=== PATIENT | male | born 1955 | race Caucasian/White ===

== ENCOUNTER 2021-01-30 18:58 | Inpatient (IN) ==
[2021-01-31] MEDS ORDERED: *HR* OxyCODONE Immed Rel 5 MG TABLET PO PRN ×2 (18:38→19:04)
[2021-01-31] MEDS ORDERED: NON-FORMULARY MEDICATION 1 EACH EACH (Potassium Chloride [Klor-Con 10] 10 MEQ Tablet.Er) PO PRN (18:38)
[2021-01-31] MEDS ORDERED: Fluticasone Propionate Nasal 50 MCG/SPRAY BOTTLE NS PRN (18:38)
[2021-01-31] MEDS: *HR* OxyCODONE Immed Rel 5 MG TABLET PO PRN (20:05)
[2021-01-31] MEDS: Cefdinir 300 MG CAPSULE PO SCH (20:06)
[2021-02-01] MEDS: Budesonide/Formoterol 80/4.5 1 PUFF INH IH SCH ×3 (03:17→21:53)
[2021-02-01] MEDS: *HR* OxyCODONE Immed Rel 5 MG TABLET PO PRN ×4 (03:24→22:17)
[2021-02-01 05:24] LABS: Basophils % 0.5 %; Eosinophils # 0.4 K/mcL (0.0-0.6); Eosinophils % 4.1 %; Hematocrit 29.9 % (37.5-50.1); Immature Granulocytes % 1.1 % (0-4); Lymphocytes # 1.2 K/mcL (0.6-4.6); Lymphocytes % 13.7 %; Mean Corpuscular HGB Conc 33.4 g/dL (31.6-35.5); Mean Corpuscular Hemoglobin 27.8 pg (28.0-33.3); Mean Corpuscular Volume 83.1 fL (83.0-100.0); Mean Platelet Volume 9.1 fL (9.4-12.4); Monocytes # 1.1 K/mcL (0.0-1.3); Monocytes % 12.3 %; Neutrophils # 5.9 K/mcL (1.6-8.9); Platelet Count 155 K/mcL (140-400); Red Cell Distribution Width 13.4 % (11.5-14.5); Segmented Neutrophils % 68.3 %; White Blood Count 8.6 K/mcL (4.3-11.1)
[2021-02-01] MEDS ORDERED: tiZANidine 4 MG TABLET PO ONE (05:24)
[2021-02-01 05:42] LABS: BUN/Creatinine Ratio 22 (6-26); Blood Urea Nitrogen 23 mg/dL (8-23); Carbon Dioxide 26 mEq/L (23-29); Chloride 101 mEq/L (98-107); Glucose 121 mg/dL (70-105); Osmolality,Calculated 283 (280-300); Potassium 3.6 mEq/L (3.5-5.1); Sodium 134 mEq/L (136-145); eGFR For African Americans > 60 (> 60); eGFR For Non-African Americans > 60 (> 60)
[2021-02-01] MEDS: *HR* Enoxaparin 40 MG/0.4 ML SYRINGE SQ SCH (05:53)
[2021-02-01] MEDS: Gabapentin 300 MG CAPSULE PO PRN (05:53)
[2021-02-01] MEDS: lisinopriL 5 MG TABLET PO SCH (09:26)
[2021-02-01] MEDS: Loratadine 10 MG TABLET PO SCH ×3 (09:26→20:09)
[2021-02-01] MEDS: Cefdinir 300 MG CAPSULE PO SCH ×2 (09:27→20:07)
[2021-02-01] MEDS: Furosemide 40 MG TABLET PO SCH (09:27)
[2021-02-01] MEDS: Azithromycin 250 MG TABLET PO SCH (09:27)
[2021-02-01] MEDS: tiZANidine 4 MG TABLET PO SCH ×2 (13:21→20:08)
[2021-02-01] MEDS ORDERED: tiZANidine 4 MG TABLET PO SCH (15:00)
[2021-02-02] MEDS: Acetaminophen 325 MG TABLET PO PRN (00:37)
[2021-02-02] MEDS: Gabapentin 300 MG CAPSULE PO PRN ×3 (00:38→15:51)
[2021-02-02] MEDS: *HR* OxyCODONE Immed Rel 5 MG TABLET PO PRN ×3 (06:49→20:52)
[2021-02-02] MEDS: *HR* Enoxaparin 40 MG/0.4 ML SYRINGE SQ SCH (06:49)
[2021-02-02] MEDS: Furosemide 40 MG TABLET PO SCH (08:01)
[2021-02-02] MEDS: Azithromycin 250 MG TABLET PO SCH (08:01)
[2021-02-02] MEDS: Cefdinir 300 MG CAPSULE PO SCH ×2 (08:01→20:54)
[2021-02-02] MEDS: lisinopriL 5 MG TABLET PO SCH (08:01)
[2021-02-02] MEDS: tiZANidine 4 MG TABLET PO SCH ×3 (08:01→20:53)
[2021-02-02] MEDS: Budesonide/Formoterol 80/4.5 1 PUFF INH IH SCH ×2 (11:14→21:44)
[2021-02-02] MEDS: Loratadine 10 MG TABLET PO SCH (20:53)
[2021-02-03] MEDS: Acetaminophen 325 MG TABLET PO PRN ×2 (00:18→10:20)
[2021-02-03] MEDS: Gabapentin 300 MG CAPSULE PO PRN ×2 (00:18→10:17)
[2021-02-03] MEDS: *HR* OxyCODONE Immed Rel 5 MG TABLET PO PRN ×3 (04:31→15:47)
[2021-02-03] MEDS: *HR* Enoxaparin 40 MG/0.4 ML SYRINGE SQ SCH (04:32)
[2021-02-03] MEDS: Budesonide/Formoterol 80/4.5 1 PUFF INH IH SCH ×2 (06:54→21:47)
[2021-02-03] MEDS: lisinopriL 5 MG TABLET PO SCH (08:42)
[2021-02-03] MEDS: tiZANidine 4 MG TABLET PO SCH ×3 (08:43→22:36)
[2021-02-03] MEDS: Furosemide 40 MG TABLET PO SCH (08:43)
[2021-02-03] MEDS: Cefdinir 300 MG CAPSULE PO SCH (08:43)
[2021-02-03] MEDS ORDERED: Furosemide 20 MG TABLET PO ONE (13:50)
[2021-02-03] MEDS ORDERED: *HR* OxyCODONE/APAP 7.5/325 TABLET PO PRN (15:54)
[2021-02-03] MEDS: *HR* OxyCODONE/APAP 5/325 TABLET PO PRN (22:35)
[2021-02-03] MEDS: Loratadine 10 MG TABLET PO SCH (22:36)
[2021-02-04] MEDS: *HR* Enoxaparin 40 MG/0.4 ML SYRINGE SQ SCH (04:36)
[2021-02-04] MEDS: *HR* OxyCODONE/APAP 5/325 TABLET PO PRN ×4 (04:36→23:19)
[2021-02-04] MEDS: Gabapentin 300 MG CAPSULE PO PRN ×2 (05:30→20:37)
[2021-02-04] MEDS: Budesonide/Formoterol 80/4.5 1 PUFF INH IH SCH ×2 (07:43→19:25)
[2021-02-04] MEDS: lisinopriL 5 MG TABLET PO SCH (08:55)
[2021-02-04] MEDS: tiZANidine 4 MG TABLET PO SCH ×3 (08:55→20:37)
[2021-02-04] MEDS: Furosemide 40 MG TABLET PO SCH (08:55)
[2021-02-04] MEDS: Loratadine 10 MG TABLET PO SCH (20:37)
[2021-02-05] MEDS: Acetaminophen 325 MG TABLET PO PRN ×2 (03:21→19:53)
[2021-02-05] MEDS: Furosemide 40 MG TABLET PO SCH (07:57)
[2021-02-05] MEDS: tiZANidine 4 MG TABLET PO SCH ×3 (07:57→19:53)
[2021-02-05] MEDS: *HR* Enoxaparin 40 MG/0.4 ML SYRINGE SQ SCH (07:57)
[2021-02-05] MEDS: *HR* OxyCODONE/APAP 5/325 TABLET PO PRN ×2 (07:58→23:42)
[2021-02-05] MEDS: lisinopriL 5 MG TABLET PO SCH (07:58)
[2021-02-05] MEDS: Budesonide/Formoterol 80/4.5 1 PUFF INH IH SCH ×2 (10:53→21:46)
[2021-02-05] MEDS: Gabapentin 300 MG CAPSULE PO PRN (19:53)
[2021-02-05] MEDS: Loratadine 10 MG TABLET PO SCH (19:53)
[2021-02-06] MEDS: Acetaminophen 325 MG TABLET PO PRN (02:26)
[2021-02-06] MEDS: *HR* OxyCODONE/APAP 5/325 TABLET PO PRN ×2 (05:19→12:00)
[2021-02-06] MEDS: *HR* Enoxaparin 40 MG/0.4 ML SYRINGE SQ SCH (05:19)
[2021-02-06] MEDS: Gabapentin 300 MG CAPSULE PO PRN (06:48)
[2021-02-06] MEDS: lisinopriL 5 MG TABLET PO SCH (08:17)
[2021-02-06] MEDS: Furosemide 40 MG TABLET PO SCH (08:17)
[2021-02-06] MEDS: tiZANidine 4 MG TABLET PO SCH (08:17)
[2021-02-06] MEDS: Budesonide/Formoterol 80/4.5 1 PUFF INH IH SCH (09:18)
[2021-02-06 12:47] VITALS: BP 135/81
== END 2021-02-06 13:40 | disposition home health service (06) | DRG 559 ==
LOC: INPGRE 01-31 17:38
PROVIDERS: ADMIT Family Medicine; ATTEND Family Medicine